=== PATIENT | male | born 1975 | race Caucasian/White ===

== ENCOUNTER 2024-08-06 11:37 | Emergency (ER) | payer OTHER ==
[~2024-08-06] VITALS: Ht 188 cm; Wt 80.1 kg
[2024-08-06 11:59] VITALS: BP 131/84
[2024-08-06 12:50] LABS: INFLUENZA B NAA NEGATIVE (NEGATIVE); RESPIRATORY SYNCYTIAL VIR NAA NEGATIVE (NEGATIVE)
== END 2024-08-06 11:59 | disposition left against medical advice (07) ==
LOC: ED 11:37
PROVIDERS: Emergency Medicine
DX: J00 Acute nasopharyngitis [common cold] (principal); R42 Dizziness and giddiness; R11.0 Nausea; R61 Generalized hyperhidrosis; Z53.21 Procedure and treatment not carried out due to patient leaving prior to being seen by health care provider
CPT/HCPCS: 87502; U0002